=== PATIENT | female | born 1950 | race Asian ===

== ENCOUNTER 2016-05-26 05:11 | Day surgery (SDC) | payer OTHER, MEDICARE ==
[2016-05-24 10:32] VITALS: BMI 29.2
[2016-05-26] MEDS ORDERED: PROPOFOL 20 ML ONE (10:31)
[2016-05-26] MEDS ORDERED: MIDAZOLAM HCL 2 MG/2 ML SINGLE DOSE VIAL ONE (10:31)
[2016-05-26] MEDS ORDERED: DEXAMETHASONE SOD PHOSPHATE 4 MG/1 ML VIAL ONE (10:32)
[2016-05-26] MEDS ORDERED: LIDOCAINE HCL 1%, 10 MG/ML (20ML VIAL) IJ ONE (11:03)
[2016-05-26] MEDS ORDERED: BUPIVACAINE HCL/PF (5 MG/ML) 30 ML VIAL IJ ONE (11:03)
[2016-05-26] MEDS ORDERED: methylPREDNISolone ACET (DEPO) 80 MG/1 ML VIAL IJ ONE (11:03)
[2016-05-26 11:32] VITALS: TEMP 97.5
[2016-05-26] MEDS ORDERED: ONDANSETRON 4 MG/2 ML VIAL IVPUSH PRN (12:56)
[2016-05-26] MEDS ORDERED: oxyCODONE HCL 5 MG TABLET PO PRN ×2 (12:56)
[2016-05-26] MEDS ORDERED: LACTATED RINGERS SOLUTION 1,000 ML IV SCH (13:00)
[2016-05-26 13:40] VITALS: BP 125/60; PULSE 60
--- NOTE | 2016-05-26 19:44 | OP ---
DATE OF OPERATION: 05/26/2016 CHIEF COMPLAINT: Lower back pain, lumbar radiculopathy. POSTOPERATIVE DIAGNOSIS: Lower back pain, lumbar radiculopathy. ATTENDING SURGEON: Celeste Cullen M.D. PROCEDURE: 1. Left L4-5 epidural injection. 2. Intraoperative fluoroscopy. ANESTHESIA: Local with IV sedation. ANESTHESIOLOGIST: Tommie Spann CRNA INDICATION: The patient is a 66-year-old female with back pain, lumbar radiculopathy. Because of intractable symptoms and failure of conservative treatment, she is here for her first epidural steroid injection. The risks of procedure include but are not limited to bleeding, infection, spinal headache, and neurological injury. The patient understands indication for the procedure, procedure in detail, risks and benefits and alternatives for treatment of her lumbar condition and wishes to proceed. No guarantee was given for a favorable outcome. PROCEDURE IN DETAIL: The patient was taken to the operating room. She was placed in a prone position with a pillow under her hips. Lumbar region was cleaned with alcohol and prepped with Betadine. A skin wheal was raised with 5 mL of 1% Xylocaine. A 22-gauge spinal needle was inserted under AP then lateral fluoroscopic guidance from left-sided approach to the left L4-5 intralaminar space. Loss of resistance technique was utilized. There was no CSF or blood backflow. Then 80 mg of Depo-Medrol and 1 mL of 0.25% Marcaine was injected. The needle withdrawn, sterile bandage was applied. The patient tolerated the procedure well and was returned back into the supine position, moving both upper and lower extremities well. She did not complain of headache. Instructions were given to the patient by myself as well for post injection. CELESTE CULLEN M.D. [id number]
== END 2016-05-26 12:40 | disposition home or self-care (01) ==
LOC: JASU-SURG 05:11
PROVIDERS: ATTEND Neurological Surgery
PROC: 3E0S3BZ Introduction of Anesthetic Agent into Epidural Space, Percutaneous Approach (ICD-10-PCS; principal; 2016-05-26)
PROC: 3E0S33Z Introduction of Anti-inflammatory into Epidural Space, Percutaneous Approach (ICD-10-PCS; 2016-05-26)
PROC: B01BZZZ Fluoroscopy of Spinal Cord (ICD-10-PCS; 2016-05-26)
DX: M54.16 Radiculopathy, lumbar region (principal); M54.5 Low back pain
CPT/HCPCS: 76000-TC; J3490

== ENCOUNTER 2016-06-09 06:12 | Day surgery (SDC) | payer OTHER, MEDICARE ==
[2016-06-07 14:50] VITALS: BMI 29.2
[2016-06-09 07:16] VITALS: TEMP 97.8
[2016-06-09] MEDS ORDERED: methylPREDNISolone ACET (DEPO) 80 MG/1 ML VIAL ONE (07:32)
[2016-06-09] MEDS ORDERED: BUPIVACAINE HCL/PF 0.25% (2.5MG/ML) 10 ML VIAL ONE (07:32)
[2016-06-09] MEDS ORDERED: LIDOCAINE HCL/PF 2% SDV 5ML VIAL ONE (08:18)
[2016-06-09] MEDS ORDERED: PROPOFOL 20 ML ONE (08:18)
[2016-06-09] MEDS ORDERED: BUPIVACAINE HCL/PF 0.25% (2.5MG/ML) 10 ML VIAL IJ ONE (08:26)
[2016-06-09] MEDS ORDERED: methylPREDNISolone ACET (DEPO) 80 MG/1 ML VIAL IM ONE (08:26)
[2016-06-09] MEDS ORDERED: oxyCODONE HCL 5 MG TABLET ONE (08:53)
[2016-06-09 10:43] VITALS: PULSE 78
[2016-06-09 10:48] VITALS: BP 130/76
--- NOTE | 2016-06-09 19:11 | OP ---
DATE OF OPERATION: 06/09/2016 PREOPERATIVE DIAGNOSIS: Lumbar spinal stenosis with back pain and lumbar radiculopathy. POSTOPERATIVE DIAGNOSIS: Lumbar spinal stenosis with back pain and lumbar radiculopathy. ATTENDING SURGEON: Praneeth Cullen MD ANESTHESIA: Local with IV sedation. ANESTHESIOLOGIST: Deepthi Nino MD INDICATION: The patient is a 66-year-old female with recurrent lower back pain and lumbar radiculopathy. She has undergone conservative treatment without significant alleviation of her symptoms. The 1st epidural steroid injection gave her good relief. She is here for the 2nd injection. The risks of procedure include but are not limited to bleeding, infection, spinal headache, and neurological injury. The patient understands the indication for the procedure, procedure in detail, risks and benefits, and alternatives for treatment of her lumbar condition and wished to proceed. No guarantee is given for a favorable outcome. PROCEDURE IN DETAIL: After the patient was taken to the operating room, she was placed in a prone position with a pillow under her hips. Lumbar region was cleaned with alcohol and prepped with Betadine. A skin wheal was raised with 5 mL of 1% Xylocaine. A 20-gauge spinal needle was inserted under AP and lateral fluoroscopic guidance. Access was gained from a left-sided approach towards the midline near L4-5. Mnuz-gt-kcjjehfrxn technique was utilized and there was no CSF or blood backflow. The needle bevel was turned cephalad. Depo-Medrol 80 mg and 1 mL of 0.25% Marcaine were injected and needle was withdrawn. The patient tolerated the procedure well and turned back to supine position, moved right lower extremity well. She did not complain of a headache. PRANEETH CULLEN M.D. [id number] MTDD
== END 2016-06-09 10:45 | disposition home or self-care (01) ==
LOC: JASU-SURG 06:12
PROVIDERS: ATTEND Neurological Surgery
PROC: 3E0R3CZ (ICD-10-PCS; 2016-06-09)
PROC: B01BZZZ Fluoroscopy of Spinal Cord (ICD-10-PCS; 2016-06-09)
PROC: 3E0R33Z Introduction of Anti-inflammatory into Spinal Canal, Percutaneous Approach (ICD-10-PCS; principal; 2016-06-09 08:00)
DX: M48.06 Spinal stenosis, lumbar region (principal); M54.16 Radiculopathy, lumbar region; M54.5 Low back pain
CPT/HCPCS: 76000-TC

== ENCOUNTER 2016-07-28 07:00 | Day surgery (SDC) | payer OTHER, MEDICARE ==
[2016-07-27 10:04] VITALS: BMI 29.2
[~2016-07-28 07:00] MED LIST: BUPIVACAINE HCL/PF 0.25% (2.5MG/ML) 10 ML VIAL IJ ONE; LIDOCAINE HCL 1% PRESERVATIVE FREE - 30ML VIAL IJ ONE; methylPREDNISolone ACET (DEPO) 80 MG/1 ML VIAL IJ ONE
[2016-07-28 07:38] VITALS: TEMP 97.6
[2016-07-28] MEDS ORDERED: BUPIVACAINE HCL/PF 0.25% (2.5MG/ML) 10 ML VIAL ONE (08:19)
[2016-07-28] MEDS ORDERED: LIDOCAINE HCL 1%, 10 MG/ML (20ML VIAL) ONE (08:19)
[2016-07-28] MEDS ORDERED: methylPREDNISolone ACET (DEPO) 80 MG/1 ML VIAL ONE (08:19)
[2016-07-28] MEDS ORDERED: BUPIVACAINE HCL/PF 0.25% (2.5MG/ML) 10 ML VIAL IJ ONE (09:01)
[2016-07-28] MEDS ORDERED: methylPREDNISolone ACET (DEPO) 80 MG/1 ML VIAL IJ ONE (09:02)
[2016-07-28] MEDS ORDERED: LIDOCAINE HCL 1% PRESERVATIVE FREE - 30ML VIAL IJ ONE (09:02)
[2016-07-28] MEDS ORDERED: ONDANSETRON 4 MG/2 ML VIAL IVPUSH PRN (09:19)
[2016-07-28] MEDS ORDERED: oxyCODONE HCL 5 MG TABLET PO PRN (09:19)
[2016-07-28] MEDS ORDERED: LACTATED RINGERS SOLUTION 1,000 ML IV SCH (09:30)
[2016-07-28 13:42] VITALS: BP 122/70; PULSE 88
--- NOTE | 2016-07-28 14:56 | OP ---
DATE OF OPERATION: 07/28/2016 PREOPERATIVE DIAGNOSIS: L4-5 stenosis with back pain and lumbar radiculopathy. POSTOPERATIVE DIAGNOSIS: L4-5 stenosis with back pain and lumbar radiculopathy. ATTENDING SURGEON: Praneeth Cullen MD PROCEDURE: 1. Left L4-5 epidural steroid injection. 2. Intraoperative fluoroscopy. ANESTHESIA: Local with IV sedation. ANESTHESIOLOGIST: Regine Davila MD INDICATIONS: The patient is a 66-year-old female with a history of back pain and lumbar radiculopathy. She has undergone prior conservative treatment without significant alleviation of her symptoms. Earlier in the year, she underwent 2 epidural steroid injections with near complete resolution of her symptomatology. She unfortunately lifted a heavy pallet of water bottles the other day and experienced increasing and recurrent back pain sciatica. Because of intractable symptoms, she is here for her 3rd epidural steroid injection of the year. The risks of procedure include but are not limited to bleeding, infection, spinal headache, and neurological injury. The patient understands the indications for the procedure, procedure in detail, risks and benefits and alternatives for treatment of her lumbar condition, and wishes to proceed. No guarantee is given for a favorable outcome. PROCEDURE IN DETAIL: The patient was taken to the operating room. She was placed in prone position with pillow under her hips. The lumbar region was cleaned with alcohol and cleaned with Betadine. A skin wheal was raised with 5 mL of 1% Xylocaine. A 22-gauge spinal needle was inserted under AP and lateral fluoroscopic guidance. From a left-sided approach to L4-5, a fairly deep approach was noted. Snbv-ia-durvglgdgw technique was utilized, and no CSF or blood backflow. Depo-Medrol 80 mg and 1 mL of 0.25% Marcaine were injected. The needle was withdrawn, sterile bandage was applied. The patient tolerated the procedure well and was returned back to supine position, moving bilateral extremities well. She did not complain of headache. PRANEETH CULLEN M.D. [id number]
== END 2016-07-28 11:00 | disposition home or self-care (01) ==
LOC: JASU-SURG 07:00
PROVIDERS: ATTEND Neurological Surgery
PROC: 3E0S33Z Introduction of Anti-inflammatory into Epidural Space, Percutaneous Approach (ICD-10-PCS; 2016-07-28)
PROC: B01BYZZ Fluoroscopy of Spinal Cord using Other Contrast (ICD-10-PCS; 2016-07-28)
PROC: 3E0S3BZ Introduction of Anesthetic Agent into Epidural Space, Percutaneous Approach (ICD-10-PCS; principal; 2016-07-28 08:30)
DX: M48.06 Spinal stenosis, lumbar region (principal); M54.16 Radiculopathy, lumbar region
CPT/HCPCS: 76000-TC